=== PATIENT | male | born 1985 | race Hispanic/Latino ===

== ENCOUNTER 2020-10-28 07:28 | Emergency (ER) | payer BC ==
[~2020-10-28] VITALS: Ht 172.7 cm; Wt 144.2 kg
[2020-10-28 08:47] VITALS: BP 138/88
== END 2020-10-28 08:49 | disposition home or self-care (01) ==
LOC: EDH 07:28
DX: J06.9 Acute upper respiratory infection, unspecified (principal); Z86.16 Personal history of COVID-19
CPT/HCPCS: 99281